=== PATIENT | male | born 1970 | race Caucasian/White ===

== ENCOUNTER 2018-04-01 15:17 | Emergency (ER) | payer BC, OTHER ==
[~2018-04-01] VITALS: Ht 188 cm; Wt 113.4 kg
[2018-04-01] MEDS ORDERED: methylPREDNISolone SOD SUCC 125 MG/2 ML VIAL IV ONE (16:00)
[2018-04-01] MEDS ORDERED: diphenhydrAMINE 50 MG/1 ML VIAL IV ONE (16:00)
[2018-04-01] MEDS ORDERED: FAMOTIDINE. 20 MG/2 ML VIAL IV ONE ×2 (16:00→16:07)
[2018-04-01] MEDS ORDERED: diphenhydrAMINE 50 MG/1 ML VIAL ONE (16:06)
[2018-04-01] MEDS ORDERED: methylPREDNISolone SOD SUCC 125 MG/2 ML VIAL ONE (16:07)
--- NOTE | 2018-04-01 16:30 | NUR ---
at bedside for re-eval.
[2018-04-01] MEDS ORDERED: EPINEPHRINE 1 MG/1 ML AMP SQ ONE (16:45)
[2018-04-01] MEDS ORDERED: EPINEPHRINE 1 MG/1 ML AMP ONE (16:47)
[2018-04-01] MEDS ORDERED: LORAZEPAM 2 MG/1 ML VIAL ONE (17:30)
[2018-04-01] MEDS ORDERED: LORAZEPAM 2 MG/1 ML VIAL IV ONE (17:30)
[2018-04-01 17:36] VITALS: BP 145/79
--- NOTE | 2018-04-01 17:36 | NUR ---
Patient discharged to home in stable conditon with . Written and verbal after care instructions given. Patient verbalizes understanding of instructions.
== END 2018-04-01 17:37 | disposition home or self-care (01) ==
LOC: ER 15:22
DX: L50.9 Urticaria, unspecified (principal); T50.905A Adverse effect of unspecified drugs, medicaments and biological substances, initial encounter; Y92.89 Other specified places as the place of occurrence of the external cause
CPT/HCPCS: 96372; 96374; 96375; 99284; A4663; J0171; J1200; J2060; J2930; J3490